=== PATIENT | male | born 1945 | race Caucasian/White ===

== ENCOUNTER 2017-09-27 16:51 | Emergency (ER) | payer OTHER ==
[~2017-09-27] VITALS: Ht 165.1 cm; Wt 90.7 kg
[2017-09-27] MEDS ORDERED: IPRATROPIUM BROM 0.5 MG/2.5ML INH SOL HHN ONE (18:15)
[2017-09-27] MEDS ORDERED: ALBUTEROL SULF 2.5 MG/0.5ML(0.5%) NEB SOLN HHN ONE (18:15)
[2017-09-27 18:58] LABS: Basophils # (auto) 0.1 uL; Basophils % (auto) 0.5 % (0.0-2.0); Eosinophils # (auto) 0 uL; Hematocrit 45.7 % (41.0-53.0); Hemoglobin 15.5 g/dL (13.5-17.5); Lymphocytes # (auto) 1.7 uL; Mean Corpuscular Hemoglobin 32.7 pg (28.0-32.0); Mean Corpuscular Volume 96.1 fL (80.0-100.0); Mean Platelet Volume 9.9 fL (6.9-10.8); Monocytes # (auto) 1.1 uL; Monocytes % (auto) 10.3 % (0.0-12.0); Neutrophils # (auto) 7.4 uL; Neutrophils % (auto) 72.2 % (37.0-80.0); Nucleated Red Blood Cells % 0.4 %; Platelet Count (auto) 192 10^3/uL (140-450); Red Cell Distribution Width 15.1 % (11.8-14.3); White Blood Cell 10.3 10^3/uL (4.4-10.8)
[2017-09-27] MEDS ORDERED: IOHEXOL 350 MG/ML 100ML IJ ONE (19:10)
[2017-09-27 19:19] LABS: Albumin 3.7 g/dL (3.4-5.0); BUN/Creatinine Ratio 17.2; Calcium 9.3 mg/dL (8.5-10.1); Magnesium 2.7 mg/dL (1.6-2.6); Potassium 3.7 mmol/L (3.5-5.1)
[2017-09-27 19:24] LABS: Bilirubin, Total 0.5 mg/dL (0.2-1.0); Total Protein 8.6 g/dL (6.4-8.2)
[2017-09-27 19:56] LABS: B-Type Natriuretic Peptide 10.59 pg/mL (0-100)
[2017-09-27 19:57] LABS: Temperature: 23.1 C (20.0-25.0)
[2017-09-27 23:28] LABS: Allen Test Yes; Blood 02Sat 84.6 % (96-100); Blood COHb 0.4 % (0.5-1.5); Blood MetHb 0.2 % (0.0-1.5); HCO3 21.3 mmol/L (22-26.0); HHb 15.3 % (0.0-5.0); MODE ROOM AIR; O2Hb 84.1 % (94.0-97.0); PO2 49.8 mmHg (80.0-100.0); PO2(T) 49.8 mmHg (80.0-100.0); Sample Type Arterial
[2017-09-27] MEDS ORDERED: predniSONE 20 MG TAB PO ONE (23:30)
[2017-09-28] MEDS ORDERED: PIPERACILLIN-TAZOB 3.375GM 50 ML IV ONE (00:15)
[2017-09-28 03:06] VITALS: BP 146/97
== END 2017-09-28 03:11 | disposition home or self-care (01) ==
LOC: ER 16:51
DX: R06.03 Acute respiratory distress (principal); R79.1 Abnormal coagulation profile; M10.9 Gout, unspecified; M25.552 Pain in left hip; I10 Essential (primary) hypertension; Z88.0 Allergy status to penicillin
CPT/HCPCS: 36415; 36600; 71010; 71275; 73502; 80053; 82805; 83605; 83735; 83880; 84484; 85025; 85379; 87040; 93005; 93971; 94640; 96365; 99291; J2543; J7512; Q9967